=== PATIENT | female | born 1965 | race Caucasian/White ===

== ENCOUNTER 2024-05-02 08:49 | Outpatient (CLI) | payer BC, SELFPAY ==
[2024-05-04 12:00] LABS: HPV Source Cervix; HPV, High Risk by TMA Not Detected
== END 2024-05-02 08:50 | disposition home or self-care (01) ==
PROVIDERS: Visit Provider Physician Assistant Medical
DX: E78.00 Pure hypercholesterolemia, unspecified (principal); I10 Essential (primary) hypertension; M25.50 Pain in unspecified joint; R23.4 Changes in skin texture; Z13.6 Encounter for screening for cardiovascular disorders; Z13.0 Encounter for screening for diseases of the blood and blood-forming organs and certain disorders involving the immune mechanism; Z11.3 Encounter for screening for infections with a predominantly sexual mode of transmission; Z11.51 Encounter for screening for human papillomavirus (HPV); Z11.59 Encounter for screening for other viral diseases
CPT/HCPCS: 80053; 80061; 84443; 84550; 86038; 86140; 86200; 86231; 86258; 86364; 86431; 86703; 86803; 86812; 87624; 87625; 88141; 88142

== ENCOUNTER 2024-06-03 08:28 | Outpatient (CLI) | payer BC, SELFPAY ==
--- NOTE | 2024-06-03 09:44 | W.ANESCHARGE ---
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
== END 2024-06-03 08:29 | disposition home or self-care (01) ==
LOC: OP CLINIC 08:28
PROVIDERS: PCP Physician Assistant Medical; Visit Provider Internal Medicine
DX: R19.5 Other fecal abnormalities (principal); K57.30 Diverticulosis of large intestine without perforation or abscess without bleeding
CPT/HCPCS: 00812; 45378; J2704

== ENCOUNTER 2024-08-14 08:01 | Outpatient (CLI) | payer BC, SELFPAY | END 2024-08-14 08:02 | disposition home or self-care (01) | LOC: NFLDREF 08-21 03:28 | PROVIDERS: PCP Physician Assistant Medical; Referring Provider Physician Assistant Medical; Visit Provider Physician Assistant Medical | DX: E78.1 Pure hyperglyceridemia (principal); I10 Essential (primary) hypertension | CPT/HCPCS: 80061 ==